=== PATIENT | female | born 1995 | race Caucasian/White ===

== ENCOUNTER 2024-11-11 04:03 | Emergency (ER) | payer SELFPAY ==
[2024-11-11] VITALS (11 sets, daily range): BP systolic 120–150; BP diastolic 72–90; PULSE 68–94; RESP 16–18; TEMP 36.6–36.7; O2SAT 98–100; BMI 19.5
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
--- NOTE | 2024-11-11 04:22 | ED_ITS ---
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 Time: 35
[2024-11-11 04:24] LABS: Basophils # 0.1 K/mm3 (0-0.2); Basophils % 0.4 % (0.1-2.0); Eosinophils # 0.1 K/mm3 (0.0-0.4); Eosinophils % 0.5 % (0.1-12.0); Hematocrit 44.2 % (37.0-47.0); Lymphocytes % 16.1 % (10-50); Mean Corpuscular HGB Conc 33.9 g/dL (31.8-35.4); Mean Corpuscular Hemoglobin 27.8 pg (27.0-31.2); Mean Platelet Volume 9.3 fl (7.4-10.4); Monocytes # 0.8 K/mm3 (0.1-1.0); Monocytes % 6.2 % (1.7-9.3); Neutrophils # 9.6 K/mm3 (1.8-7.8); Neutrophils % 76.6 % (37.0-80.0); Platelet Count 312 K/mm3 (142-424); Red Blood Count 5.39 M/mm3 (4.20-5.40); Red Cell Distribution Width 12.2 % (11.5-17.5); White Blood Count 12.5 K/mm3 (4.8-10.8)
--- NOTE | 2024-11-11 04:28 | ECG_ITS ---
APPROVED REPORT Exam: Resting ECG HR:75 bpm ECG Measurements Heart Rate 75 AXES OH 148 P 63 QRSd 83 QRS 76 QT 377 T 0 QTc 406 Conclusion SINUS RHYTHM NONSPECIFIC ST & T-WAVE ABNORMALITY No STEMI Electronically signed by : BERTIN RAMSEY, 11/12/2024 00:25:49
[2024-11-11 04:29] LABS: Albumin Level 4.7 g/dl (3.5-5.0); Chloride 103 mmol/L (98-107); Sodium 137 mmol/L (136-145)
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
[2024-11-11 04:30] LABS: Potassium 3.4 mmoL/L (3.5-5.1)
[2024-11-11 04:32] LABS: Alanine Aminotransferase 19 U/L (12-78); Anion Gap 15.4 mEq/L (5-15); Aspartate Amino Transferase 29 U/L (14-36); Blood Urea Nitrogen 15 mg/dl (7-17); Carbon Dioxide 22 mmol/L (22.0-30.0); Estimated Glomerular Filt Rate 117 ml/min (>60); GFR (African American) 141 ML/MIN (>60)
[2024-11-11 04:33] LABS: Albumin/Globulin Ratio 1.5 (1.1-1.8); Alkaline Phosphatase 79 U/L (38-126); Bilirubin,Total 0.8 mg/dl (0.2-1.3); Calcium 9.7 mg/dl (8.4-10.2); Ethyl Alcohol < 10 mg/dl (0-10); Globulin 3.2 g/dL (1.3-3.2); Glucose 107 mg/dl (74-100); Total Protein,Serum 7.9 g/dl (6.3-8.2)
[2024-11-11 04:35] LABS: INR 1.11 (0.9-1.1); Prothrombin Time 12.3 seconds (10.1-12.5)
[2024-11-11 04:37] LABS: HCG Qualitative, Serum Negative (Negative)
[2024-11-11] MEDS: 0.9 % SODIUM CHLORIDE 50 ML VIAL 80 ML IV (04:54)
[2024-11-11] MEDS: SODIUM CHLORIDE 0.9% 10ML SYR (RAD ONLY) 10 ML IV (04:54)
[2024-11-11] MEDS: IOPAMIDOL-370 (76%);100ML BOTTLE 160 ML IV (04:54)
--- NOTE | 2024-11-11 05:15 | PC.NURSE ---
advised c-collar could be removed at this time. C-Collar removed, patient resting in bed, no needs, call light within reach, family at bedside
[2024-11-11 06:01] LABS: HIV Combo NEGATIVE (Negative)
[2024-11-11 06:09] LABS: Hepatitis C Ab Qual. W/ RFX NEGATIVE (Negative)
--- NOTE | 2024-11-11 08:01 | PC.NURSE ---
lela jauregui spoke with [facility], they will call back to speak to MD for a pt consult.
--- NOTE | 2024-11-11 08:16 | PC.NURSE ---
zaria guevara is speaking to [facility]
--- NOTE | 2024-11-11 08:19 | PC.NURSE ---
er at bedside
== END 2024-11-11 08:38 | disposition home or self-care (01) ==
PROVIDERS: Emergency Medicine; Emergency Provider Student in an Organized Health Care Education/Training Program
DX: S40.812A Abrasion of left upper arm, initial encounter (principal); S27.329A Contusion of lung, unspecified, initial encounter; R10.30 Lower abdominal pain, unspecified; V49.3XXA Car occupant (driver) (passenger) injured in unspecified nontraffic accident, initial encounter; Y93.89 Activity, other specified; Y92.488 Other paved roadways as the place of occurrence of the external cause
CPT/HCPCS: 70450; 70496; 70498; 71045; 71275; 72125; 72128; 72131; 72170; 73060; 74174; 80053; 80320; 84703; 85025; 85610; 85730; 86803; 87389; 93005; 99291; Q9967

== ENCOUNTER 2025-01-10 09:51 | Outpatient (CLI) | payer OTHER, SELFPAY ==
--- NOTE | 2025-01-10 10:01 | XR_ITS ---
FINAL REPORT CLINICAL HISTORY: CONTUSION OF LUNG COMPARISON: 11/11/2024 FINDINGS: CHEST 2 VIEWS PA AND LATERAL The heart is normal in size. The mediastinum is unremarkable. The lungs are clear. There is no pneumothorax. There is a 20 degree thoracic scoliosis convex to the right. IMPRESSION: No acute process. Reviewed, Interpreted and Dictated by Jose Jones MD Transcribed by Bebe Gant Authenticated and [facility]
== END 2025-01-10 23:59 | disposition home or self-care (01) ==
LOC: RAD 09:53
PROVIDERS: PCP Family Medicine; Visit Provider Family Medicine
DX: S27.321A Contusion of lung, unilateral, initial encounter (principal)
CPT/HCPCS: 71046

== ENCOUNTER 2025-06-12 17:00 | Outpatient (CLI) | payer OTHER, SELFPAY ==
--- OUTSIDE RECORDS SUMMARY | 2025-06-13 13:27 | XMS_ITS | Clinical Summary ---
Author Organization Healthcare Address [address] [place], [place] [id number] Care Team Providers Care Glass Cutting Machine Feeder Name Role Phone Pcp, No Primary Care Provider Unavailabl e Allergies No known active allergies Medications No known medications Active Problems Problem Noted Date Diagnosed Date Anxiety 12/03/2021 Depression 12/03/2021 Oral contraception initial prescription 04/07/20 Immunizations Immunization Administration Dates Next Due Tdap 08/29/2020 Family History Medical History Relation Name Comments Prostate cancer Father Breast cancer Maternal Grandmother Breast cancer Mother Prostate cancer Paternal Grandfather Relation Name Status Comments Father Alive Maternal Grandmother Mother Alive Paternal Grandfather Social History Tobacco Use Types Packs/Day Years Used Date Smoking Tobacco: Never Smokeless Tobacco: Never Alcohol Use Standard Drinks/Week Comments Not Currently 0 (1 standard drink = 0.6 oz pur e alcohol) PHQ-2 Answer Date Recorded Patient Health Questionnaire-2 Score 0 10/01/2024 Comments Unknown Sex and Gender Information Value Date Recorded Sex Assigned at Not on file Legal Sex Female 8:48 PM EDT Gender Identity Not on file Sexual Orientation Not on file Last Filed Vital Signs Vital Sign Reading Time Taken Comments Blood Pressure 138/86 10/01/2024 3:45 PM EST Pulse 53 10/01/2024 3:45 PM EST Temperature 36.5 C (97.7 F) 10/01/2024 3:45 PM EST Respiratory Rate - - Oxygen Saturation 100% 10/01/2024 3:45 PM EST Inhaled Oxygen Concentration - - Weight 59 kg (130 lb 1.1 oz) 10/01/2024 3:45 PM EST Height 157.5 cm (5' 2 ) 10/01/2024 3:45 PM EST Body Mass Index 23.79 10/01/2024 3:45 PM EST Plan of Treatment Upcoming Encounters Date Type Department Care Team (Late st Contact Info) Description 10/03/2025 9:15 AM EST Procedure Visit Obstetrics & Gynecology [address] [place] [address] Carlin Coto MD [address] [place] [address] Health Maintenance Due Date Last Done Comments [facility]-/Child/Adol SDOH Screenings 1993 [facility]-IPV Vaccines (2 of 3 - 4-dose series) 05/28/1997 1997 [facility]-Varicella Vaccines (1 of 2 - 13+ 2-dose series) 2006 [facility]- SDOH Screenings 2011 [facility]-Adult SDOH Screenings 2011 [facility]-Hepatitis B Vaccines (1 of 3 - 19+ 3-dose series) 2012 [facility]-RGEJP-03 Vaccine (3 - 2024- season) 2025 04/07/2021, 03/10/2021 [facility]-Influenza Vaccine (#1) 2025 [facility]-Depression Screening 10/01/2025 10/01/2024 [facility]-Pap Smear 10/01/2027 10/01/2024, 12/03/2021 [facility]-Cervical Cancer Screening 10/01/2029 [facility]-HPV/Cotest 10/01/2029 10/01/2024, 12/03/2021 [facility]-DTaP,Tdap,and Td Vaccines (4 - Td or Tdap) 08/29/2030 08/29/2020, 03/11/2005, 1997 [facility]-Zoster Vaccines (1 of 2) 2043 HPV Vaccines Completed 02/05/2008, 10/04/2007, 08/02/2007 [facility]-HIV Screening Completed 03/31/2020 [facility]-Hepatitis C Screening Completed 03/31/2020 [facility]-HIB Vaccines Aged Out No longer e ligible based on patient's age to complete this topic [facility]-Hepatitis A Vaccines Aged Out No longer eligible based on patient's age to complete this topic [facility]-Pneumococcal Vaccine: Pediatrics (0 to 5 Years) and At-Risk Patients (6 to 49 Years) Aged Out No longer eligible b ased on patient's age to complete this topic [facility]-Rotavirus Vaccines Aged Out No lo nger eligible based on patient's age to complete this topic Procedures Procedure Name Priority Date/Time Associated Diagnosis Comments REFERRED THINPREP PAP AND HPV (SO) Routine 10/01/2024 3:47 PM EST Encounter for annual routine gynecological examination HEPATITIS C ANTIBODY W/REFLEX TO HCV QUANT PCR Routine 03/31/2020 5:00 PM EDT HIV 1/2 ANTIBODY/ANTIGEN SCREEN WITH REFLEX TO HIV I/II DIFFERENTIATION Routine 03/31/2020 5:00 PM EDT from Last 3 Months or Most Recently Relevant to Health Maintenance Results * Referred ThinPrep Pap and HPV (SO) (10/01/2024 3:47 PM EST) Pap, Source Cx/Vagina 10/09/2024 4:01 PM EST [facility] EER Referred ThinPrep Pap and HPV See Note 10/09/2024 4:01 PM EST [facility] PAP, THINPREP Normal 10/09/2024 4:01 PM EST [facility] High Risk HPV Normal 10/09/2024 4:01 PM EST [facility] Swab Vaginal and cervical cytologic material / Unknown Non-blood Collection / Unknown 10/01/2024 3:47 PM EST 10/02/2024 11:17 AM EST Narrative [facility] - 10/09/2024 4:01 PM EST Authorized individuals can access the [facility] Enhanced Report with an [facility] Connect account using the following link. Your local lab can assist you in obtaining the patient report if you don't have a Connect account. [email or web address] Performed By: [facility] [address] [place] [id number] Dust Operator: Evan Raymond MD, PhD CLIA Number: [id number] SPECIMEN PART A. Cervical, Endocervical, Vaginal, ThinPrep Pap ([facility]) CYTOLOGY HX Date of Last Menstrual Period: N FINAL DIAGNOSIS INTERPRETATION: Negative for Intraepithelial Lesion or Malignancy. SPECIMEN ADEQUACY:Satisfactory for evaluation. Endocervical/transformation zone component present. Electronically Signed Out : Kim Matos Performed by: [facility] [address] [place] [address] [place] [address] Mag Epps MD, HR-HPV: Negative Test performed by the FDA-approved [facility] (Gen-Probe) APTIMA HPV test, which detects HPV genotypes: 16, 18, 31, 33, 35, 39, 45, 51, 52, 56, 58, 59, 66, and 68. This assay has been cleared for the specimen types listed below. Other specimen types have not been validated for this assay. -Clinician-collected ThinPrep Pap specimens. Performed by: [facility] [place] [address] Mag Epps MD, Carlin Coto MD LAB REF LAB BLOOD AND FLUID ORD Final Result [facility] [address] [place] [address] * HIV 1 & 2 Antibody/Antigen Screen (03/31/2020 5:00 PM EDT) HIV 1 Result NONREACTIVE Screening for HIV 1 and 2 antibodies is NONREACTIVE. No confirmatory testing is required. [email or web address] 03/31/2020 5:00 PM EDT 03/31/2020 6:19 PM EDT us Aimee Sánchez MD LAB BLOOD ORDERABLES Final Re sult [facility] * Hepatitis C Antibody (03/31/2020 5:00 PM EDT) Hepatitis C Antibody NEGATIVE Reference Range: Negative [facility] 03/31/2020 5:00 PM EDT 03/31/2020 6:19 PM EDT Aimee Sánchez MD LAB BLOOD ORDERABLES Final Re sult [facility] from Last 3 Months or Most Recently Relevant to Health Maintenance Insurance [employer] [facility]ICAID MEDICAID [facility] [place] Care Teams Glass Cutting Machine Feeder Relationship Specialty Start Date End [place] [address] PCP - General 04/07/21
--- OUTSIDE RECORDS SUMMARY | 2025-06-13 13:27 | XMS_ITS | Encounter Summary ---
Author Organization Healthcare Address [address] [place] [address] Care Team Providers Care Chief Unit Forester Name Role Phone Pcp, No Primary Care Provider Unavailabl e Reason for Visit * Reason Comments Med Refill Encounter Details Date Type Department Care Team ([facility] Contact Info) Description 05/03/2022 Refill Obstetrics & Gynecology [address] [place] [address] [address], [place], [place] [address] Social History Tobacco Use Types Packs/Day Years Used Date Smoking Tobacco: Never Smokeless Tobacco: Never Alcohol Use Standard Drinks/Week Comments Not Currently 0 (1 standard drink = 0.6 oz pur e alcohol) Comments Unknown Sex and Gender Information Value Date Recorded Sex Assigned at Not on file Legal Sex Female 8:48 PM EDT Gender Identity Not on file Sexual Orientation Not on file documented as of this encounter Plan of Treatment Upcoming Encounters Date Type Department Care Team ([facility] Contact Info) Description 10/03/2025 9:15 AM EST Procedure Visit Obstetrics & Gynecology [address] [place] [address] Carlin Coto MD [address] [place] [address] documented as of this encounter Visit Diagnoses Not on filedocumented in this encounter Care Teams Chief Unit Forester Relationship Specialty Start Date End Date Pcp, Scarlett [address] [place] [id number] PCP - General 04/07/21 documented as of this encounter
== END 2025-06-12 23:59 | disposition home or self-care (01) ==
LOC: LAB.DROPOF 06-13 13:22
PROVIDERS: PCP Nurse Practitioner; Visit Provider Nurse Practitioner
DX: R35.0 Frequency of micturition (principal)
CPT/HCPCS: 87086; 87088